=== PATIENT | female | born 1970 | race Caucasian/White ===

== ENCOUNTER 2018-05-16 19:23 | Emergency (ER) | payer OTHER ==
[~2018-05-16] VITALS: Ht 172.7 cm; Wt 59.0 kg
[2018-05-16] MEDS ORDERED: LEVSIN0.125 MG PO (19:49)
[2018-05-16] MEDS ORDERED: CARISOPRODOL 3350 MG PO (19:49)
[2018-05-16] MEDS ORDERED: XIFAXAN 200 MG200 MG PO (19:49)
[2018-05-16] MEDS ORDERED: COZAAR 25 MG TA25 M1 PO (19:50)
[2018-05-16] MEDS ORDERED: TRAZODONE HCL50 MG PO (19:50)
[2018-05-16] MEDS ORDERED: OMEPRAZOLE40 MG PO (19:51)
[2018-05-16] MEDS ORDERED: BLISOVI 24 FE1 EACH PO (19:51)
[2018-05-16] MEDS ORDERED: HYDROCODON-ACE1 EAC7 PO (19:52)
[2018-05-16 20:36] LABS: ABSOLUTE BASOPHILS 0.1 thou/uL (0.0-0.2); ABSOLUTE EOSINOPHILS 0.1 thou/uL (0.0-0.7); ABSOLUTE LYMPHOCYTES 2.6 thou/uL (0.8-5.3); ABSOLUTE MONOCYTES 0.6 thou/uL (0.0-1.2); ABSOLUTE NEUTROPHILS 4.4 thou/uL (1.6-8.1); BASOPHILS 0.9 %; EOSINOPHILS 0.8 %; HEMATOCRIT 40.2 % (37.0-47.0); HEMOGLOBIN 13.7 gm/dL (12.0-15.0); LYMPHOCYTES 33.5 %; MCH 31.3 pg (26.0-34.0); MCHC 33.9 g/dL (28.0-37.0); MCV 92.2 fL (80.0-100.0); MONOCYTES 7.6 %; MPV 8.3 fl. (7.2-11.1); NUCLEATED RBCS 0 /100WBC; PLATELET COUNT* 248 thou/uL (150-400); POLYS 57.2 %; RBC 4.36 mil/uL (4.20-5.00); RDW-CV 12.3 % (10.5-14.5); WBC 7.7 thou/uL (4.0-11.0)
[2018-05-16 20:47] LABS: ANION GAP 9 mmol/L (7-16); BUN 11 mg/dL (7-18); CHLORIDE 105 mmol/L (98-107); CO2 25 mmol/L (21-32); CREATININE 0.9 mg/dL (0.6-1.3); GLUCOSE 82 mg/dL (70-99); POTASSIUM 3.2 mmol/L (3.5-5.1); SODIUM 139 mmol/L (136-145)
[2018-05-16 20:54] LABS: ALBUMIN 3.5 g/dL (3.4-5.0); ALKALINE PHOSPHATASE 60 U/L (46-116); LIPASE 175 U/L (73-393); SGOT 14 U/L (15-37); SGPT 20 U/L (30-65); TOTAL BILIRUBIN 0.2 mg/dL (<0.1-1.0); TROPONIN-I LEVEL <0.06 ng/mL (<0.06)
[2018-05-16 20:57] LABS: URINE BILIRUBIN NEGATIVE (Negative); URINE BLOOD NEGATIVE (Negative); URINE CLARITY CLEAR; URINE COLOR YELLOW; URINE GLUCOSE-RANDOM NEGATIVE (Negative); URINE KETONES NEGATIVE (Negative); URINE LEUKOCYTES NEGATIVE (Negative); URINE NITRITE NEGATIVE (Negative); URINE PROTEIN NEGATIVE (Negative); URINE SPECIFIC GRAVITY <= 1.005 (1.005-1.030); URINE UROBILINOGEN 0.2 E.U./dl (0.2-1.0)
[2018-05-16] MEDS ORDERED: CARAFATE1 GM/10 ML PO (22:36)
[2018-05-16 23:30] VITALS: BP 103/60
--- NOTE | 2018-05-19 15:28 | EKG ---
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: CAREN : 1970 Requested By: Letha Torres Order Number: [id number] MD: Nathaniel Nugent Measurements Intervals [place] Rate: 59 P: 43 [place]: 158 QRS: 11 QRSD: 106 T: 55 QT: 418 QTc: 414 Interpretive Statements Sinus rhythm RSR' in V1 or V2, probably normal variant Minimal ST elevation, inferior leads Baseline wander in lead(s) V1 No previous ECG available for comparison Electronically Signed On 05-19-2018 15:28:25 LOAN COLLECTOR by Nathaniel Nugent [email or web address] <ELECTRONICALLY SIGNED> By: Nathaniel Nugent MD, [facility] 05/19/18 1528 25 25 Nathaniel Nugent MD, [facility] /EPI
== END 2018-05-16 23:33 | disposition home or self-care (01) ==
LOC: M.ERS 19:23
PROVIDERS: Nurse Practitioner Family
DX: R10.11 Right upper quadrant pain (principal); D25.9 Leiomyoma of uterus, unspecified; K21.9 Gastro-esophageal reflux disease without esophagitis; I10 Essential (primary) hypertension; Z88.8 Allergy status to other drugs, medicaments and biological substances

== ENCOUNTER → 2018-05-24 | Outpatient (CLI) | payer OTHER ==
[~2018-05-24] MED LIST: BLISOVI 24 FE1 EACH PO; CARAFATE1 GM/10 ML PO; CARISOPRODOL 3350 MG PO; COZAAR 25 MG TA25 M1 PO; HYDROCODON-ACE1 EAC7 PO; LEVSIN0.125 MG PO; OMEPRAZOLE40 MG PO; TRAZODONE HCL50 MG PO; XIFAXAN 200 MG200 MG PO
== END ==
LOC: M.NUC 07:45
DX: R10.10 Upper abdominal pain, unspecified (principal)

== ENCOUNTER → 2018-06-20 | Outpatient (CLI) | payer OTHER | LOC: M.NUC 07:05 | DX: R68.81 Early satiety (principal); R63.4 Abnormal weight loss ==

== ENCOUNTER 2019-05-07 16:47 | Emergency (ER) | payer OTHER ==
[~2019-05-07] VITALS: Ht 172.7 cm; Wt 59.0 kg
[2019-05-07 19:02] VITALS: BP 139/75
== END 2019-05-07 19:05 | disposition home or self-care (01) ==
LOC: M.ERS 16:47
DX: S61.411A Laceration without foreign body of right hand, initial encounter (principal); K21.9 Gastro-esophageal reflux disease without esophagitis; I10 Essential (primary) hypertension; Z88.8 Allergy status to other drugs, medicaments and biological substances; W20.8XXA Other cause of strike by thrown, projected or falling object, initial encounter; Y92.89 Other specified places as the place of occurrence of the external cause; Y93.89 Activity, other specified; Y99.8 Other external cause status